=== PATIENT | male | born 1955 | race Caucasian/White ===

== ENCOUNTER 2019-01-29 16:13 | Observation (INO) | payer OTHER, MEDICAID, SELFPAY ==
[2019-01-29 16:19] VITALS: BP 154/79; PULSE 109; RESP 22; TEMP 36.9; O2SAT 99
[2019-01-29] MEDS: SODIUM CHLORIDE 0.9% 1,000 ML 1000 ML IV ×2 (16:36→17:48)
[2019-01-29 16:38] LABS: Add Manual Diff / Slide Review NO; Basophils Absolute Auto 100 /uL (0-100); Basophils Percent Auto 0.6 % (0-2); Eosinophils Absolute Auto 100 /uL (0-450); Eosinophils Percent Auto 0.6 % (2-4); Hematocrit 33.7 % (41-53); Hemoglobin 11.1 g/dL (13.5-17.5); Lymphocytes Absolute Auto 2600 /uL (1100-4500); Mean Corpuscular HGB Conc 32.8 % (30-36); Mean Corpuscular Hemoglobin 27.9 PG (26-34); Monocytes Absolute Auto 700 /uL (0-900); Monocytes Percent Auto 5.8 % (3-14); Neutrophils Absolute Auto 9300 /uL (1500-7000); Platelet Count 478 X10^3/uL (150-400); Red Blood Cell Count 3.97 X10^6/uL (4.5-5.9); White Blood Cell Count 12.8 X10^3/uL (4.5-11.0)
--- NOTE | 2019-01-29 16:39 | DI.RAD.S_ITS ---
PROCEDURE: XR CHEST 1V INDICATIONS: dka TECHNIQUE: One view of the chest was acquired. COMPARISON: None. FINDINGS: Surgical changes and devices: None. Lungs and pleura: Lungs are clear. No pleural effusions or pneumothorax. Mediastinum: Mediastinal contours appear normal. Heart size is normal. Bones and chest wall: No suspicious bony lesions. Overlying soft tissues appear unremarkable. IMPRESSION: Normal chest, source of diabetic ketoacidosis is not seen. Dictated by: Brandon Wesley M.D. on 01/29/2019 at 17:02 Approved by: Brandon Wesley M.D. on 01/29/2019 at 17:02
[2019-01-29 16:47] LABS: Alanine Aminotransferase 10 IU/L (21-72); Albumin 4.2 g/dL (3.5-5.0); Albumin Globulin Ratio 0.9 (1.0-2.8); Alkaline Phosphatase 99 U/L (38-126); Aspartate Aminotransferase 13 IU/L (17-59); BUN Creatinine Ratio 24.3 (6-22); Bilirubin Total 0.5 mg/dL (0.2-1.3); Blood Urea Nitrogen 51 mg/dL (9-20); Calcium 9.1 mg/dL (8.4-10.2); Carbon Dioxide 28 mmol/L (22-32); Chloride 86 mmol/L (98-107); Estimated Glomerular Filt Rate 32.3 mL/min (>60); Globulin 4.7 g/dL (1.7-4.1); HEMOLYSIS < 15 (0-50); Potassium 4.8 mmol/L (3.4-5.1); Sodium 128 mmol/L (137-145); Total Protein 8.9 g/dL (6.3-8.2)
[2019-01-29 16:51] VITALS: BP 166/108; PULSE 97; RESP 22; O2SAT 94
[2019-01-29 16:55] LABS: Glucose 628 mg/dL (80-110)
[2019-01-29 17:00] VITALS: BP 170/103; PULSE 95; RESP 11; O2SAT 99
[2019-01-29 17:00] LABS: Lactate (Lactic Acid) 1.5 mmol/L (0.7-2.1)
[2019-01-29 17:05] LABS: HCO3 VBG 29 mmol/L (23-28); Oxygen Saturation VBG 27 % (70-75); PCO2 VBG 55.1 mmHg (45-50); PO2 VBG 20 mmHg (35-45); Total CO2 VBG 30 mmol/L (24-29); pH VBG 7.32 (7.33-7.43)
[2019-01-29 17:09] LABS: Ketones (Beta-Hydroxybutyrate) 0.31 mmol/L (<0.27)
[2019-01-29 17:24] LABS: Procalcitonin 0.15 ng/mL (<0.5)
[2019-01-29] MEDS: INSULIN REGULAR 100 UNIT/ML 3 ML VIAL 12 UNIT IV (18:00)
[2019-01-29 18:46] VITALS: BP 157/96; PULSE 102; RESP 22; O2SAT 98
--- NOTE | 2019-01-29 18:50 | ED.GENADULT ---
HPI - General Adult General Chief complaint: Diabetic Problem Stated complaint: ? DKA, BS > 600, altered mental status Time Seen by Provider: 01/29/19 16:45 Source: patient Mode of arrival: ambulatory Limitations: no limitations History of Present Illness HPI narrative: Patient states that he has come to the emergency department today because he ?just has not felt good?. Patient states that for about the last year, he has been noticing tingling in his hands and feet. He states that he has been feeling tired and dizzy, and he that ?something isn't right?. Patient states he has a strong family history of diabetes, so he has been concerned that he may be developing diabetes himself. Patient states that he bought himself a glucometer and found his sugar to be high this afternoon. As such, he presented to a clinic in [place], where he happened to be, and was found have a sugar greater than 600. Because the patient lives in [place], he opted to come to our hospital for further evaluation. Patient denies nausea vomiting. He denies fevers or chills. No chest pain, shortness of breath, or cough. No dysuria. Patient states that he urinates about what he thinks he should based on how much water he is drinking. Patient states he gave up drinking alcohol about a year ago, and never goes to the doctor. He states the last time he went to the doctor before today was ?years ago?. Related Data Previous Rx's Medication Instructions Recorded insulin glargine [Lantus Solostar 20 unit SUBCUT BID 30 Days #12 ml 01/30/19 U-100 Insulin] insulin regular human [Humulin R 7 unit SUBCUT TIDWM 30 Days ml 01/30/19 Regular U-100 Insuln] metoprolol tartrate 12.5 mg PO BID 30 Days #30 tab 01/30/19 Allergies Allergy/AdvReac Type Severity Reaction Status Date / Time No Known Drug Allergies Allergy Verified 01/29/19 16:37 Review of Systems Constitutional Denies chills, Denies fever(s), Denies lethargy and Reports weakness Eyes Denies change in vision, Denies eye discharge, Denies irritation and Denies loss of vision ENT Ears, Nose, Mouth, and Throat: Denies change in voice, Denies neck pain and Denies sore throat Cardiovascular Denies chest pain, Denies irregular heart rhythm, Denies lightheadedness, Denies palpitations, Denies dyspnea, Denies dyspnea on exertion and Denies orthopnea Respiratory Denies cough, Denies dyspnea, Denies dyspnea on exertion and Denies wheezing Gastrointestinal Gastrointestinal: Denies abdominal pain, Denies change in bowel habits, Denies diarrhea, Denies nausea and Denies vomiting Genitourinary Denies hematuria, Denies flank pain, Denies urinary incontinence and Denies urinary urgency Musculoskeletal Denies neck pain Integumentary/Breasts Denies pruritus, Denies erythema, Denies rash and Denies wounds Neurologic Denies confusion, Denies loss of vision and Reports weakness Psychiatric Denies anxiety, Denies confusion, Denies depression, Denies homicidal ideation and Denies suicidal ideation Endocrine Denies palpitations Hematologic/Lymphatic Denies easy bruising Allergic/Immunologic Denies wheezing [facility] Medical History (Updated 01/30/19 @ 00:30 by EDILBERTO Corey) Essential hypertension (Acute) Acute dehydration (Acute) Healthy adult (Acute) Diabetes mellitus with hyperglycemia (Acute) Surgical History H/O hernia repair (Acute) Family History Mother Diabetes mellitus Father No problems noted. Social History household members: friend(s) Smoking Status: Current some day smoker alcohol intake: former Family History Mother Diabetes mellitus Father No problems noted. Social History household members: friend(s) Smoking Status: Current some day smoker alcohol intake: former Exam Initial Vital Signs Initial Vital Signs: Vital Signs Temperature 98.5 F 01/29/19 16:19 Pulse Rate 109 H 01/29/19 16:19 Respiratory Rate 22 01/29/19 16:19 Blood Pressure 154/79 H 01/29/19 16:19 Pulse Oximetry 99 01/29/19 16:19 Const General: cooperative, No healthy appearing, No well groomed, No in distress and disheveled Nutritional Appearance: well nourished Orientation: alert, awake, oriented x3 and not confused Other: Patient is thin, and has generally poor skin color, but is alert and talkative. [facility] Head: normocephalic and atraumatic Ears: external ears normal Nose: external nose normal and No nasal discharge Face and sinus: face symmetric and No dry mucous membranes Mouth: oral mucosae normal and moist mucous membranes Teeth and gingiva: dentition normal Eyes General: appearance normal, both eyes and all related structures Eyelids: eyelids normal Conjunctivae: conjunctivae normal Sclera: sclerae normal Pupils: PERRL EOM: EOM intact bilaterally Neck Neck: normal visual inspection, trachea midline, No lymphadenopathy, No midline deformity and No JVD Lymphatic: No lymphedema Chest Chest: normal inspection of the chest Resp Effort & Inspection: normal respiratory effort, able to speak in complete sentences, no respiratory distress and no use of accessory muscles Auscultation: clear to auscultation bilaterally, no rales, no rhonchi and no wheezes Cardio Rate: regular rate Rhythm: regular rhythm Heart Sounds: no click, no gallops, no murmurs and no rubs Pulses: normal peripheral pulses GI Inspection: non-distended Palpation: soft, no hepatosplenomegaly, No guarding, No pulsatile mass and No tender Back/Spine/Pelvis Back: No CVA tenderness Cervical Spine: cervical ROM normal and No pain with cervical ROM Thoracic/Lumbar Spine: thoracic and lumbar spine normal to inspection Skin General: no rashes or lesions noted, No jaundice and No petechiae Neuro General: alert, oriented x3, gait normal and no focal motor deficits Speech: speech normal Extrem General: full ROM, no clubbing, cyanosis or edema, no pedal edema and no calf tenderness Psych Appearance: well kempt Mental Status: mental status grossly normal Attitude: cooperative Thought Content: normal and suicidality Judgment: judgment good Course Course Narrative: Patient was treated with IV fluids and worked up with POC glucose, which was greater than 500, and laboratory studies. Glucose was found to be over 600 on labs, the patient was given IV dose of regular insulin for this. Patient was found to have an anion gap of 14. His VBG showed a pH of 7.32 and a bicarb of 29. I did not feel this patient was in DKA, but given his new onset diabetes, severe hyperglycemia, and lack of any medical care as an outpatient, I felt that he should be admitted to the hospital. I spoke with Dr. Pelaez, who is the on-call hospitalist, and she did accept the patient for admission. On re-evaluation, the patient's repeat blood sugar was found to be 337. He had received back to pack L of 0.9 normal saline, which had improved his heart rate. Orders Ordered: Discontinued Medications Atorvastatin Calcium (Lipitor) 40 mg PO BEDTIME MAGDA Dextrose (D50w) 25 gm IV PRN PRN PRN Reason: Hypoglycemia Sodium Chloride (Normal Saline 0.9%) 1,000 mls @ 1,000 mls/hr IV BOLUS ONE Stop: 01/29/19 17:21 Last Infusion: 01/29/19 17:46 Dose: 0 mls/hr Admin: 01/29/19 16:36 Dose: 1,000 mls/hr Sodium Chloride (Normal Saline 0.9%) 1,000 mls @ 1,000 mls/hr IV BOLUS ONE Stop: 01/29/19 18:11 Last Admin: 01/29/19 17:48 Dose: 1,000 mls/hr Sodium Chloride (Normal Saline 0.45%) 1,000 mls @ 100 mls/hr IV CONT MAGDA Last Admin: 01/30/19 00:25 Dose: 100 mls/hr Potassium Chloride/Sodium Chloride (Ns With Kcl 20 Meq) 1,000 mls @ 250 mls/hr IV CONT MAGDA Last Infusion: 01/30/19 14:15 Dose: 250 mls/hr Admin: 01/30/19 10:16 Dose: 250 mls/hr Insulin Aspart (Novolog Flexpen) 0 unit SUBCUT ACHS MAGDA; Protocol Insulin Aspart (Novolog Flexpen) 0 unit SUBCUT ACHS MAGDA; Protocol Last Admin: 01/30/19 09:17 Dose: Not Given Admin: 01/30/19 00:27 Dose: 1 unit Insulin Glargine (Lantus Solostar (Pen)) 10 unit SUBCUT BID MAGDA Insulin Glargine (Lantus Solostar (Pen)) 10 unit SUBCUT BID MAGDA Last Admin: 01/30/19 08:26 Dose: 10 unit Admin: 01/30/19 00:29 Dose: 10 unit Insulin Glargine (Lantus Solostar (Pen)) 20 unit SUBCUT BID [facility] Insulin Human NPH (Humulin N) 6 unit SUBCUT BIDWM [facility] Insulin Human NPH (Humulin N) 6 unit SUBCUT BIDWM [facility] Insulin Human Regular (Humulin R) 12 unit IV NOW ONE Stop: 01/29/19 17:16 Last Admin: 01/29/19 18:00 Dose: 12 unit Insulin Human Regular (Humulin R) 7 unit SUBCUT TIDWM [facility] Last Admin: 01/30/19 12:18 Dose: 7 unit Admin: 01/30/19 08:25 Dose: 7 unit Metoprolol Tartrate (Lopressor) 12.5 mg PO BID [facility] Last Admin: 01/30/19 08:48 Dose: 12.5 mg Vital Signs - 8 hr 01/29/19 16:19 01/29/19 16:51 01/29/19 17:00 Temperature 98.5 F Pulse Rate 109 H 97 H 95 H Respiratory Rate 22 22 11 L Blood Pressure 154/79 H Blood Pressure [Right Arm] 166/108 H 170/103 H Pulse Oximetry 99 94 99 01/29/19 18:46 Temperature Pulse Rate 102 H Respiratory Rate 22 Blood Pressure Blood Pressure [Right Arm] 157/96 H Pulse Oximetry 98 Medical Decision Making Medical Records Medical records reviewed: Yes I reviewed the patient's medical records. Lab Data Lab results reviewed: Yes I reviewed the patient's lab results. Result diagrams: 01/30/19 05:11 01/30/19 14:43 Lab Results 01/29/19 01/29/19 01/29/19 Range/Units 16:26 16:26 16:26 WBC 12.8 H (4.5-11.0) X10^3/uL RBC 3.97 L (4.5-5.9) X10^6/uL Hgb 11.1 L (13.5-17.5) g/dL Hct 33.7 L (41-53) % MCV 85.0 (80-100) fL MCH 27.9 (26-34) PG MCHC 32.8 (30-36) % RDW 14.0 (11.6-14.8) % Plt Count 478 H (150-400) X10^3/uL Neut % (Auto) 73.0 (50-75) % Lymph % (Auto) 20.0 L (25-40) % [place] % (Auto) 5.8 (3-14) % Eos % (Auto) 0.6 L (2-4) % Baso % (Auto) 0.6 (0-2) % Neut # (Auto) 9300 H (0599-2851) /uL Lymph # (Auto) 2600 (6685-1576) /uL [place] # (Auto) 700 (0-900) /uL Eos # (Auto) 100 (0-450) /uL Baso # (Auto) 100 (0-100) /uL VBG pH (7.33-7.43) VBG pCO2 (45-50) mmHg VBG pO2 (35-45) mmHg VBG HCO3 (23-28) mmol/L VBG Total CO2 (24-29) mmol/L VBG O2 Saturation (70-75) % VBG Base Excess (0-4) mmol/L Sodium 128 L (137-145) mmol/L Potassium 4.8 (3.4-5.1) mmol/L Chloride 86 L (98-107) mmol/L Carbon Dioxide 28 (22-32) mmol/L BUN 51 H (9-20) mg/dL Creatinine 2.10 H (0.66-1.25) mg/dL Estimated GFR 32.3 L (>60) mL/min BUN/Creatinine Ratio 24.3 H (6-22) Glucose 628 H* (80-110) mg/dL Hemoglobin A1c (4.0-6.0) % Lactate (0.7-2.1) mmol/L Calcium 9.1 (8.4-10.2) mg/dL Total Bilirubin 0.5 (0.2-1.3) mg/dL AST 13 L (17-59) IU/L ALT 10 L (21-72) IU/L Alkaline Phosphatase 99 (38-126) U/L Total Protein 8.9 H (6.3-8.2) g/dL Albumin 4.2 (3.5-5.0) g/dL Globulin 4.7 H (1.7-4.1) g/dL Albumin/Globulin Ratio 0.9 L (1.0-2.8) Triglycerides (35-150) mg/dL Cholesterol (140-199) mg/dL LDL Cholesterol, Calc (<100) mg/dL HDL Cholesterol (40-60) mg/dL Procalcitonin 0.15 (<0.5) ng/mL TSH (0.47-4.68) uIU/mL Urine Color Urine Appearance Urine pH (4.5-8.0) Ur Specific [place] (1.000-1.035) Urine Protein (Negative) Urine Glucose (UA) (Negative) g/dL Urine Ketones (NEGATIVE) Urine Occult Blood (Negative) Urine Nitrate (Negative) Urine Bilirubin (NEGATIVE) Urine Urobilinogen (0.2) E.U./dL Ur Leukocyte Esterase (NEGATIVE) Urine RBC (0-5/HPF) Urine WBC (0-5/HPF) Ur Squamous Epith Cells (0-5/HPF) Urine Bacteria (None) Ur Culture Indicated? Ketones (<0.27) mmol/L 01/29/19 01/29/19 01/29/19 Range/Units 16:26 16:26 16:35 WBC (4.5-11.0) X10^3/uL RBC (4.5-5.9) X10^6/uL Hgb (13.5-17.5) g/dL Hct (41-53) % MCV (80-100) fL MCH (26-34) PG MCHC (30-36) % RDW (11.6-14.8) % Plt Count (150-400) X10^3/uL Neut % (Auto) (50-75) % Lymph % (Auto) (25-40) % [place] % (Auto) (3-14) % Eos % (Auto) (2-4) % Baso % (Auto) (0-2) % Neut # (Auto) (8632-0684) /uL Lymph # (Auto) (7343-3810) /uL [place] # (Auto) (0-900) /uL Eos # (Auto) (0-450) /uL Baso # (Auto) (0-100) /uL VBG pH 7.32 L (7.33-7.43) VBG pCO2 55.1 H (45-50) mmHg VBG pO2 20 L (35-45) mmHg VBG HCO3 29 H (23-28) mmol/L VBG Total CO2 30 H (24-29) mmol/L VBG O2 Saturation 27 L (70-75) % VBG Base Excess 3.0 (0-4) mmol/L Sodium (137-145) mmol/L Potassium (3.4-5.1) mmol/L Chloride (98-107) mmol/L Carbon Dioxide (22-32) mmol/L BUN (9-20) mg/dL Creatinine (0.66-1.25) mg/dL Estimated GFR (>60) mL/min BUN/Creatinine Ratio (6-22) Glucose (80-110) mg/dL Hemoglobin A1c (4.0-6.0) % Lactate 1.5 (0.7-2.1) mmol/L Calcium (8.4-10.2) mg/dL Total Bilirubin (0.2-1.3) mg/dL AST (17-59) IU/L ALT (21-72) IU/L Alkaline Phosphatase (38-126) U/L Total Protein (6.3-8.2) g/dL Albumin (3.5-5.0) g/dL Globulin (1.7-4.1) g/dL Albumin/Globulin Ratio (1.0-2.8) Triglycerides (35-150) mg/dL Cholesterol (140-199) mg/dL LDL Cholesterol, Calc (<100) mg/dL HDL Cholesterol (40-60) mg/dL Procalcitonin (<0.5) ng/mL TSH (0.47-4.68) uIU/mL Urine Color Urine Appearance Urine pH (4.5-8.0) Ur Specific [place] (1.000-1.035) Urine Protein (Negative) Urine Glucose (UA) (Negative) g/dL Urine Ketones (NEGATIVE) Urine Occult Blood (Negative) Urine Nitrate (Negative) Urine Bilirubin (NEGATIVE) Urine Urobilinogen (0.2) E.U./dL Ur Leukocyte Esterase (NEGATIVE) Urine RBC (0-5/HPF) Urine WBC (0-5/HPF) Ur Squamous Epith Cells (0-5/HPF) Urine Bacteria (None) Ur Culture Indicated? Ketones 0.31 H (<0.27) mmol/L 01/29/19 01/30/19 01/30/19 Range/Units 23:50 03:52 05:11 WBC 10.7 (4.5-11.0) X10^3/uL RBC 3.49 L (4.5-5.9) X10^6/uL Hgb 10.2 L (13.5-17.5) g/dL Hct 29.3 L (41-53) % MCV 84.1 (80-100) fL MCH 29.3 (26-34) PG MCHC 34.8 (30-36) % RDW 13.7 (11.6-14.8) % Plt Count 411 H (150-400) X10^3/uL Neut % (Auto) 63.2 (50-75) % Lymph % (Auto) 27.6 (25-40) % [place] % (Auto) 5.9 (3-14) % Eos % (Auto) 2.3 (2-4) % Baso % (Auto) 1.0 (0-2) % Neut # (Auto) 6800 (9046-8309) /uL Lymph # (Auto) 3000 (6743-7170) /uL [place] # (Auto) 600 (0-900) /uL Eos # (Auto) 200 (0-450) /uL Baso # (Auto) 100 (0-100) /uL VBG pH (7.33-7.43) VBG pCO2 (45-50) mmHg VBG pO2 (35-45) mmHg VBG HCO3 (23-28) mmol/L VBG Total CO2 (24-29) mmol/L VBG O2 Saturation (70-75) % VBG Base Excess (0-4) mmol/L Sodium (137-145) mmol/L Potassium (3.4-5.1) mmol/L Chloride (98-107) mmol/L Carbon Dioxide (22-32) mmol/L BUN (9-20) mg/dL Creatinine (0.66-1.25) mg/dL Estimated GFR (>60) mL/min BUN/Creatinine Ratio (6-22) Glucose (80-110) mg/dL Hemoglobin A1c > 14.0 H (4.0-6.0) % Lactate (0.7-2.1) mmol/L Calcium (8.4-10.2) mg/dL Total Bilirubin (0.2-1.3) mg/dL AST (17-59) IU/L ALT (21-72) IU/L Alkaline Phosphatase (38-126) U/L Total Protein (6.3-8.2) g/dL Albumin (3.5-5.0) g/dL Globulin (1.7-4.1) g/dL Albumin/Globulin Ratio (1.0-2.8) Triglycerides (35-150) mg/dL Cholesterol (140-199) mg/dL LDL Cholesterol, Calc (<100) mg/dL HDL Cholesterol (40-60) mg/dL Procalcitonin (<0.5) ng/mL TSH (0.47-4.68) uIU/mL Urine Color Yellow Urine Appearance Slightly cloudy Urine pH 5.0 (4.5-8.0) Ur Specific [place] 1.010 (1.000-1.035) Urine Protein Negative (Negative) Urine Glucose (UA) 2+ H (Negative) g/dL Urine Ketones Negative (NEGATIVE) Urine Occult Blood Trace-lysed (Negative) Urine Nitrate Negative (Negative) Urine Bilirubin Negative (NEGATIVE) Urine Urobilinogen 0.2 (0.2) E.U./dL Ur Leukocyte Esterase 2+ H (NEGATIVE) Urine RBC None seen (0-5/HPF) Urine WBC 30-100/hpf H (0-5/HPF) Ur Squamous Epith Cells None seen (0-5/HPF) Urine Bacteria Few (2-10) H (None) Ur Culture Indicated? Specimen cultured Ketones (<0.27) mmol/L 01/30/19 01/30/19 01/30/19 Range/Units 05:11 05:11 05:11 WBC (4.5-11.0) X10^3/uL RBC (4.5-5.9) X10^6/uL Hgb (13.5-17.5) g/dL Hct (41-53) % MCV (80-100) fL MCH (26-34) PG MCHC (30-36) % RDW (11.6-14.8) % Plt Count (150-400) X10^3/uL Neut % (Auto) (50-75) % Lymph % (Auto) (25-40) % [place] % (Auto) (3-14) % Eos % (Auto) (2-4) % Baso % (Auto) (0-2) % Neut # (Auto) (4893-3386) /uL Lymph # (Auto) (1875-5846) /uL [place] # (Auto) (0-900) /uL Eos # (Auto) (0-450) /uL Baso # (Auto) (0-100) /uL VBG pH (7.33-7.43) VBG pCO2 (45-50) mmHg VBG pO2 (35-45) mmHg VBG HCO3 (23-28) mmol/L VBG Total CO2 (24-29) mmol/L VBG O2 Saturation (70-75) % VBG Base Excess (0-4) mmol/L Sodium 134 L (137-145) mmol/L Potassium 4.4 (3.4-5.1) mmol/L Chloride 98 (98-107) mmol/L Carbon Dioxide 27 (22-32) mmol/L BUN 40 H (9-20) mg/dL Creatinine 1.70 H (0.66-1.25) mg/dL Estimated GFR 41.2 L (>60) mL/min BUN/Creatinine Ratio 23.5 H (6-22) Glucose 274 H D (80-110) mg/dL Hemoglobin A1c (4.0-6.0) % Lactate (0.7-2.1) mmol/L Calcium 8.4 (8.4-10.2) mg/dL Total Bilirubin (0.2-1.3) mg/dL AST (17-59) IU/L ALT (21-72) IU/L Alkaline Phosphatase (38-126) U/L Total Protein (6.3-8.2) g/dL Albumin (3.5-5.0) g/dL Globulin (1.7-4.1) g/dL Albumin/Globulin Ratio (1.0-2.8) Triglycerides 99 (35-150) mg/dL Cholesterol 113 L (140-199) mg/dL LDL Cholesterol, Calc 61 (<100) mg/dL HDL Cholesterol 32 L (40-60) mg/dL Procalcitonin (<0.5) ng/mL TSH 1.46 (0.47-4.68) uIU/mL Urine Color Urine Appearance Urine pH (4.5-8.0) Ur Specific [place] (1.000-1.035) Urine Protein (Negative) Urine Glucose (UA) (Negative) g/dL Urine Ketones (NEGATIVE) Urine Occult Blood (Negative) Urine Nitrate (Negative) Urine Bilirubin (NEGATIVE) Urine Urobilinogen (0.2) E.U./dL Ur Leukocyte Esterase (NEGATIVE) Urine RBC (0-5/HPF) Urine WBC (0-5/HPF) Ur Squamous Epith Cells (0-5/HPF) Urine Bacteria (None) Ur Culture Indicated? Ketones (<0.27) mmol/L 01/30/19 Range/Units 14:43 WBC (4.5-11.0) X10^3/uL RBC (4.5-5.9) X10^6/uL Hgb (13.5-17.5) g/dL Hct (41-53) % MCV (80-100) fL MCH (26-34) PG MCHC (30-36) % RDW (11.6-14.8) % Plt Count (150-400) X10^3/uL Neut % (Auto) (50-75) % Lymph % (Auto) (25-40) % [place] % (Auto) (3-14) % Eos % (Auto) (2-4) % Baso % (Auto) (0-2) % Neut # (Auto) (4068-8427) /uL Lymph # (Auto) (6867-2909) /uL [place] # (Auto) (0-900) /uL Eos # (Auto) (0-450) /uL Baso # (Auto) (0-100) /uL VBG pH (7.33-7.43) VBG pCO2 (45-50) mmHg VBG pO2 (35-45) mmHg VBG HCO3 (23-28) mmol/L VBG Total CO2 (24-29) mmol/L VBG O2 Saturation (70-75) % VBG Base Excess (0-4) mmol/L Sodium 137 (137-145) mmol/L Potassium 4.6 (3.4-5.1) mmol/L Chloride 99 (98-107) mmol/L Carbon Dioxide 28 (22-32) mmol/L BUN 38 H (9-20) mg/dL Creatinine 1.80 H (0.66-1.25) mg/dL Estimated GFR 38.6 L (>60) mL/min BUN/Creatinine Ratio 21.1 (6-22) Glucose 156 H D (80-110) mg/dL Hemoglobin A1c (4.0-6.0) % Lactate (0.7-2.1) mmol/L Calcium 8.5 (8.4-10.2) mg/dL Total Bilirubin (0.2-1.3) mg/dL AST (17-59) IU/L ALT (21-72) IU/L Alkaline Phosphatase (38-126) U/L Total Protein (6.3-8.2) g/dL Albumin (3.5-5.0) g/dL Globulin (1.7-4.1) g/dL Albumin/Globulin Ratio (1.0-2.8) Triglycerides (35-150) mg/dL Cholesterol (140-199) mg/dL LDL Cholesterol, Calc (<100) mg/dL HDL Cholesterol (40-60) mg/dL Procalcitonin (<0.5) ng/mL TSH (0.47-4.68) uIU/mL Urine Color Urine Appearance Urine pH (4.5-8.0) Ur Specific [place] (1.000-1.035) Urine Protein (Negative) Urine Glucose (UA) (Negative) g/dL Urine Ketones (NEGATIVE) Urine Occult Blood (Negative) Urine Nitrate (Negative) Urine Bilirubin (NEGATIVE) Urine Urobilinogen (0.2) E.U./dL Ur Leukocyte Esterase (NEGATIVE) Urine RBC (0-5/HPF) Urine WBC (0-5/HPF) Ur Squamous Epith Cells (0-5/HPF) Urine Bacteria (None) Ur Culture Indicated? Ketones (<0.27) mmol/L Point of Care Testing Glucose POC 242 Urine Dip Bedside Urine Glucose Negative Bedside Urine Bilirubin - Negative Bedside Urine Ketone - Negative Urine Specific [place] 1.015 Bedside Urine Occult Blood - Negative Bedside Urine pH 7.0 Bedside Urine Protein - Negative Bedside Urine Urobilinogen +/- 1mg Bedside Urine Nitrite - Negative Bedside Urine Leukocytes + 70 Esterase Point of care testing: Point of Care Testing Glucose POC 242 Urine Dip Bedside Urine Glucose Negative Bedside Urine Bilirubin - Negative Bedside Urine Ketone - Negative Urine Specific [place] 1.015 Bedside Urine Occult Blood - Negative Bedside Urine pH 7.0 Bedside Urine Protein - Negative Bedside Urine Urobilinogen +/- 1mg Bedside Urine Nitrite - Negative Bedside Urine Leukocytes + 70 Esterase Imaging Data Chest x-ray: Radiologist's impression: PROCEDURE: XR CHEST 1V INDICATIONS: dka TECHNIQUE: One view of the chest was acquired. COMPARISON: None. FINDINGS: Surgical changes and devices: None. Lungs and pleura: Lungs are clear. No pleural effusions or pneumothorax. Mediastinum: Mediastinal contours appear normal. Heart size is normal. Bones and chest wall: No suspicious bony lesions. Overlying soft tissues appear unremarkable. IMPRESSION: Normal chest, source of diabetic ketoacidosis is not seen. Dictated by: Brandon Wesley M.D. on 01/29/2019 at 17:02 Approved by: Brandon Wesley M.D. on 01/29/2019 at 17:02 Discharge Plan Departure Patient Disposition: Admitted As Inpatient Clinical Impression: Acute dehydration Diabetes mellitus with hyperglycemia Qualifiers: Diabetes mellitus type: type 2 Diabetes mellitus computer terminal operator insulin use: without computer terminal operator use Qualified Code(s): E11.65 - Type 2 diabetes mellitus with hyperglycemia Discharge Date/Time: 01/29/19 19:25 Interventions: ED Discharge Assessment Last Done: 01/29/19 18:50 Admit Date/Time: 01/29/19 18:48 Admit Provider: Philomena Pelaez
--- NOTE | 2019-01-29 18:54 | ED_ITS ---
HPI - General Adult General Chief complaint: Diabetic Problem Stated complaint: ? DKA, BS > 600, altered mental status Time Seen by Provider: 01/29/19 16:45 Source: patient Mode of arrival: ambulatory Limitations: no limitations History of Present Illness HPI narrative: Patient states that he has come to the emergency department today because he ?just has not felt good?. Patient states that for about the last yea r, he has been noticing tingling in his hands and feet. He states that he has been feeling tired and dizzy, and he that ?something isn't right?. Patient states he has a strong family history of diabetes, so he has been concerned that he may be developing diabetes himself. Patient states that he bought himself a glucometer and found his sugar to be high this afternoon. As such, he presented to a clinic in [place], where he happened to be, and was found have a sugar greater than 600. Because the patient lives in [place], he opted to come to our hospital for further evaluation. Patient denies nausea vomiting. He denies fevers or chills. No chest pain, shortness of breath, or cough. No dysuria. Patient states that he urinates about what he thinks he should based on how much water he is drinking. Patient states he gave up drinking alcohol about a year ago, and never goes to the doctor. He states the last time he went to the doctor before today was ?years ago?. Related Data Previous Rx's Medication Instructions Recorded insulin glargine [Lantus Solostar 20 unit SUBCUT BID 30 Days #12 ml 01/30/19 U-100 Insulin] insulin regular human [Humulin R 7 unit SUBCUT TIDWM 30 Days ml 01/30/19 Regular U-100 Insuln] metoprolol tartrate 12.5 mg PO BID 30 Days #30 tab 01/30/19 Allergies Allergy/AdvReac Type Severity Reaction Status Date / Time No Known Drug Allergies Allergy Verified 01/29/19 16:37 Review of Systems Constitutional Denies chills, Denies fever(s), Denies lethargy and Reports weakness Eyes Denies change in vision, Denies eye discharge, Denies irritation and Denies loss of vision ENT Ears, Nose, Mouth, and Throat: Denies change in voice, Denies neck pain and D enies sore throat Cardiovascular Denies chest pain, Denies irregular heart rhythm, Denies lightheadedness, Denies palpitations, Denies dyspnea, Denies dyspnea on exertion and Denies orthopnea Respiratory Denies cough, Denies dyspnea, Denies dyspnea on exertion and Denies wheezing Gastrointestinal Gastrointestinal: Denies abdominal pain, Denies change in bowel habits, Denies diarrhea, Denies nausea and Denies vomiting Genitourinary Denies hematuria, Denies flank pain, Denies urinary incontinence and Denies urinary urgency Musculoskeletal Denies neck pain Integumentary/Breasts Denies pruritus, Denies erythema, Denies rash and Denies wounds Neurologic Denies confusion, Denies loss of vision and Reports weakness Psychiatric Denies anxiety, Denies confusion, Denies depression, Denies homicidal ideation and Denies suicidal ideation Endocrine Denies palpitations Hematologic/Lymphatic Denies easy bruising Allergic/Immunologic Denies wheezing [facility] Medical History (Updated 01/30/19 @ 00:30 by EDILBERTO Corey) Essential hypertension (Acute) Acute dehydration (Acute) Healthy adult (Acute) Diabetes mellitus with hyperglycemia (Acute) Surgical History H/O hernia repair (Acute) Family History Mother Diabetes mellitus Father No problems noted. Social History household members: friend(s) Smoking Status: Current some day smoker alcohol intake: former Family History Mother Diabetes mellitus Father No problems noted. Social History household members: friend(s) Smoking Status: Current some day smoker alcohol intake: former Exam Initial Vital Signs Initial Vital Signs: Vital Signs Temperature 98.5 F 01/29/19 16:19 Pulse Rate 109 H 01/29/19 16:19 Respiratory Rate 22 01/29/19 16:19 Blood Pressure 154/79 H 01/29/19 16:19 Pulse Oximetry 99 01/29/19 16:19 Const General: cooperative, No healthy appearing, No well groomed, No in distress and disheveled Nutritional Appearance: well nourished Orientation: alert, awake, oriented x3 and not confused Other: Patient is thin, and has generally poor skin color, but is alert and talkative. [facility] Head: normocephalic and atraumatic Ears: external ears normal Nose: external nose normal and No nasal discharge Face and sinus: face symmetric and No dry mucous membranes Mouth: oral mucosae normal and moist mucous membranes Teeth and gingiva: dentition normal Eyes General: appearance normal, both eyes and all related structures Eyelids: eyelids normal Conjunctivae: conjunctivae normal Sclera: sclerae normal Pupils: PERRL EOM: EOM intact bilaterally Neck Neck: normal visual inspection, trachea midline, No lymphadenopathy, No midline deformity and No JVD Lymphatic: No lymphedema Chest Chest: normal inspection of the chest Resp Effort & Inspection: normal respiratory effort, able to speak in complete sentences, no respiratory distress and no use of accessory muscles Auscultation: clear to auscultation bilaterally, no rales, no rhonchi and no wheezes Cardio Rate: regular rate Rhythm: regular rhythm Heart Sounds: no click, no gallops, no murmurs and no rubs Pulses: normal peripheral pulses GI Inspection: non-distended Palpation: soft, no hepatosplenomegaly, No guarding, No pulsatile mass and No tender Back/Spine/Pelvis Back: No CVA tenderness Cervical Spine: cervical ROM normal and No pain with cervical ROM Thoracic/Lumbar Spine: thoracic and lumbar spine normal to inspection Skin General: no rashes or lesions noted, No jaundice and No petechiae Neuro General: alert, oriented x3, gait normal and no focal motor deficits Speech: speech normal Extrem General: full ROM, no clubbing, cyanosis or edema, no pedal edema and no calf tenderness Psych Appearance: well kempt Mental Status: mental status grossly normal Attitude: cooperative Thought Content: normal and suicidality Judgment: judgment good Course Course Narrative: Patient was treated with IV fluids and worked up with POC glucose, which was greater than 500, and laboratory studies. Glucose was found to be over 600 on labs, the patient was given IV dose of regular insulin for this. Patient was found to have an anion gap of 14. His VBG showed a pH of 7.32 and a bicarb of 29. I did not feel this patient was in DKA, but given his new onset diabetes, severe hyperglycemia, and lack of any medical care as an outpatient, I felt that he should be admitted to the hospital. I spoke with Dr. Pelaez, who is the on-call hospitalist, and she did accept the patient for a dmission. On re-evaluation, the patient's repeat blood sugar was found to be 337. He had received back to pack L of 0.9 normal saline, which had improved his heart rate. Orders Ordered: Discontinued Medications Atorvastatin Calcium (Lipitor) 40 mg PO BEDTIME MAGDA Dextrose (D50w) 25 gm IV PRN PRN PRN Reason: Hypoglycemia Sodium Chloride (Normal Saline 0.9%) 1,000 mls @ 1,000 mls/hr IV BOLUS ONE Stop: 01/29/19 17:21 Last Infusion: 01/29/19 17:46 Dose: 0 mls/hr Admin: 01/29/19 16:36 Dose: 1,000 mls/hr Sodium Chloride (Normal Saline 0.9%) 1,000 mls @ 1,000 mls/hr IV BOLUS ONE Stop: 01/29/19 18:11 Last Admin: 01/29/19 17:48 Dose: 1,000 mls/hr Sodium Chloride (Normal Saline 0.45%) 1,000 mls @ 100 mls/hr IV CONT MAGDA Last Admin: 01/30/19 00:25 Dose: 100 mls/hr Potassium Chloride/Sodium Chloride (Ns With Kcl 20 Meq) 1,000 mls @ 250 mls/hr IV CONT MAGDA Last Infusion: 01/30/19 14:15 Dose: 250 mls/hr Admin: 01/30/19 10:16 Dose: 250 mls/hr Insulin Aspart (Novolog Flexpen) 0 unit SUBCUT ACHS MAGDA; Protocol Insulin Aspart (Novolog Flexpen) 0 unit SUBCUT ACHS MAGDA; Protocol Last Admin: 01/30/19 09:17 Dose: Not Given Admin: 01/30/19 00:27 Dose: 1 unit Insulin Glargine (Lantus Solostar (Pen)) 10 unit SUBCUT BID MAGDA Insulin Glargine (Lantus Solostar (Pen)) 10 unit SUBCUT BID MAGDA Last Admin: 01/30/19 08:26 Dose: 10 unit Admin: 01/30/19 00:29 Dose: 10 unit Insulin Glargine (Lantus Solostar (Pen)) 20 unit SUBCUT BID [facility] Insulin Human NPH (Humulin N) 6 unit SUBCUT BIDWM [facility] Insulin Human NPH (Humulin N) 6 unit SUBCUT BIDWM [facility] Insulin Human Regular (Humulin R) 12 unit IV NOW ONE Stop: 01/29/19 17:16 Last Admin: 01/29/19 18:00 Dose: 12 unit Insulin Human Regular (Humulin R) 7 unit SUBCUT TIDWM [facility] Last Admin: 01/30/19 12:18 Dose: 7 unit Admin: 01/30/19 08:25 Dose: 7 unit Metoprolol Tartrate (Lopressor) 12.5 mg PO BID [facility] Last Admin: 01/30/19 08:48 Dose: 12.5 mg Vital Signs - 8 hr 01/29/19 16:19 01/29/19 16:51 01/29/19 17:00 Temperature 98.5 F Pulse Rate 109 H 97 H 95 H Respiratory Rate 22 22 11 L Blood Pressure 154/79 H Blood Pressure [Right Arm] 166/108 H 170/103 H Pulse Oximetry 99 94 99 01/29/19 18:46 Temperature Pulse Rate 102 H Respiratory Rate 22 Blood Pressure Blood Pressure [Right Arm] 157/96 H Pulse Oximetry 98 Medical Decision Making Medical Records Medical records reviewed: Yes I reviewed the patient's medical records. Lab Data Lab results reviewed: Yes I reviewed the patient's lab results. Result diagrams: 01/30/19 05:11 01/30/19 14:43 Lab Results 01/29/19 01/29/19 01/29/19 Range/Units 16:26 16:26 16:26 WBC 12.8 H (4.5-11.0) X10^3/uL RBC 3.97 L (4.5-5.9) X10^6/uL Hgb 11.1 L (13.5-17.5) g/dL Hct 33.7 L (41-53) % MCV 85.0 (80-100) fL MCH 27.9 (26-34) PG MCHC 32.8 (30-36) % RDW 14.0 (11.6-14.8) % Plt Count 478 H (150-400) X10^3/uL Neut % (Auto) 73.0 (50-75) % Lymph % (Auto) 20.0 L (25-40) % [place] % (Auto) 5.8 (3-14) % Eos % (Auto) 0.6 L (2-4) % Baso % (Auto) 0.6 (0-2) % Neut # (Auto) 9300 H (5011-7167) /uL Lymph # (Auto) 2600 (3477-2311) /uL [place] # (Auto) 700 (0-900) /uL Eos # (Auto) 100 (0-450) /uL Baso # (Auto) 100 (0-100) /uL VBG pH (7.33-7.43) VBG pCO2 (45-50) mmHg VBG pO2 (35-45) mmHg VBG HCO3 (23-28) mmol/L VBG Total CO2 (24-29) mmol/L VBG O2 Saturation (70-75) % VBG Base Excess (0-4) mmol/L Sodium 128 L (137-145) mmol/L Potassium 4.8 (3.4-5.1) mmol/L Chloride 86 L (98-107) mmol/L Carbon Dioxide 28 (22-32) mmol/L BUN 51 H (9-20) mg/dL Creatinine 2.10 H (0.66-1.25) mg/dL Estimated GFR 32.3 L (>60) mL/min BUN/Creatinine Ratio 24.3 H (6-22) Glucose 628 H* (80-110) mg/dL Hemoglobin A1c (4.0-6.0) % Lactate (0.7-2.1) mmol/L Calcium 9.1 (8.4-10.2) mg/dL Total Bilirubin 0.5 (0.2-1.3) mg/dL AST 13 L (17-59) IU/L ALT 10 L (21-72) IU/L Alkaline Phosphatase 99 (38-126) U/L Total Protein 8.9 H (6.3-8.2) g/dL Albumin 4.2 (3.5-5.0) g/dL Globulin 4.7 H (1.7-4.1) g/dL Albumin/Globulin Ratio 0.9 L (1.0-2.8) Triglycerides (35-150) mg/dL Cholesterol (140-199) mg/dL LDL Cholesterol, Calc (<100) mg/dL HDL Cholesterol (40-60) mg/dL Procalcitonin 0.15 (<0.5) ng/mL TSH (0.47-4.68) uIU/mL Urine Color Urine Appearance Urine pH (4.5-8.0) Ur Specific Dalton (1.000-1.035) Urine Protein (Negative) Urine Glucose (UA) (Negative) g/dL Urine Ketones (NEGATIVE) Urine Occult Blood (Negative) Urine Nitrate (Negative) Urine Bilirubin (NEGATIVE) Urine Urobilinogen (0.2) E.U./dL Ur Leukocyte Esterase (NEGATIVE) Urine RBC (0-5/HPF) Urine WBC (0-5/HPF) Ur Squamous Epith Cells (0-5/HPF) Urine Bacteria (None) Ur Culture Indicated? Ketones (<0.27) mmol/L 01/29/19 01/29/19 01/29/19 Range/Units 16:26 16:26 16:35 WBC (4.5-11.0) X10^3/uL RBC (4.5-5.9) X10^6/uL Hgb (13.5-17.5) g/dL Hct (41-53) % MCV (80-100) fL MCH (26-34) PG MCHC (30-36) % RDW (11.6-14.8) % Plt Count (150-400) X10^3/uL Neut % (Auto) (50-75) % Lymph % (Auto) (25-40) % [place] % (Auto) (3-14) % Eos % (Auto) (2-4) % Baso % (Auto) (0-2) % Neut # (Auto) (8946-8854) /uL Lymph # (Auto) (8532-3904) /uL [place] # (Auto) (0-900) /uL Eos # (Auto) (0-450) /uL Baso # (Auto) (0-100) /uL VBG pH 7.32 L (7.33-7.43) VBG pCO2 55.1 H (45-50) mmHg VBG pO2 20 L (35-45) mmHg VBG HCO3 29 H (23-28) mmol/L VBG Total CO2 30 H (24-29) mmol/L VBG O2 Saturation 27 L (70-75) % VBG Base Excess 3.0 (0-4) mmol/L Sodium (137-145) mmol/L Potassium (3.4-5.1) mmol/L Chloride (98-107) mmol/L Carbon Dioxide (22-32) mmol/L BUN (9-20) mg/dL Creatinine (0.66-1.25) mg/dL Estimated GFR (>60) mL/min BUN/Creatinine Ratio (6-22) Glucose (80-110) mg/dL Hemoglobin A1c (4.0-6.0) % Lactate 1.5 (0.7-2.1) mmol/L Calcium (8.4-10.2) mg/dL Total Bilirubin (0.2-1.3) mg/dL AST (17-59) IU/L ALT (21-72) IU/L Alkaline Phosphatase (38-126) U/L Total Protein (6.3-8.2) g/dL Albumin (3.5-5.0) g/dL Globulin (1.7-4.1) g/dL Albumin/Globulin Ratio (1.0-2.8) Triglycerides (35-150) mg/dL Cholesterol (140-199) mg/dL LDL Cholesterol, Calc (<100) mg/dL HDL Cholesterol (40-60) mg/dL Procalcitonin (<0.5) ng/mL TSH (0.47-4.68) uIU/mL Urine Color Urine Appearance Urine pH (4.5-8.0) Ur Specific Dalton (1.000-1.035) Urine Protein (Negative) Urine Glucose (UA) (Negative) g/dL Urine Ketones (NEGATIVE) Urine Occult Blood (Negative) Urine Nitrate (Negative) Urine Bilirubin (NEGATIVE) Urine Urobilinogen (0.2) E.U./dL Ur Leukocyte Esterase (NEGATIVE) Urine RBC (0-5/HPF) Urine WBC (0-5/HPF) Ur Squamous Epith Cells (0-5/HPF) Urine Bacteria (None) Ur Culture Indicated? Ketones 0.31 H (<0.27) mmol/L 01/29/19 01/30/19 01/30/19 Range/Units 23:50 03:52 05:11 WBC 10.7 (4.5-11.0) X10^3/uL RBC 3.49 L (4.5-5.9) X10^6/uL Hgb 10.2 L (13.5-17.5) g/dL Hct 29.3 L (41-53) % MCV 84.1 (80-100) fL MCH 29.3 (26-34) PG MCHC 34.8 (30-36) % RDW 13.7 (11.6-14.8) % Plt Count 411 H (150-400) X10^3/uL Neut % (Auto) 63.2 (50-75) % Lymph % (Auto) 27.6 (25-40) % [place] % (Auto) 5.9 (3-14) % Eos % (Auto) 2.3 (2-4) % Baso % (Auto) 1.0 (0-2) % Neut # (Auto) 6800 (0514-1522) /uL Lymph # (Auto) 3000 (5570-8444) /uL [place] # (Auto) 600 (0-900) /uL Eos # (Auto) 200 (0-450) /uL Baso # (Auto) 100 (0-100) /uL VBG pH (7.33-7.43) VBG pCO2 (45-50) mmHg VBG pO2 (35-45) mmHg VBG HCO3 (23-28) mmol/L VBG Total CO2 (24-29) mmol/L VBG O2 Saturation (70-75) % VBG Base Excess (0-4) mmol/L Sodium (137-145) mmol/L Potassium (3.4-5.1) mmol/L Chloride (98-107) mmol/L Carbon Dioxide (22-32) mmol/L BUN (9-20) mg/dL Creatinine (0.66-1.25) mg/dL Estimated GFR (>60) mL/min BUN/Creatinine Ratio (6-22) Glucose (80-110) mg/dL Hemoglobin A1c > 14.0 H (4.0-6.0) % Lactate (0.7-2.1) mmol/L Calcium (8.4-10.2) mg/dL Total Bilirubin (0.2-1.3) mg/dL AST (17-59) IU/L ALT (21-72) IU/L Alkaline Phosphatase (38-126) U/L Total Protein (6.3-8.2) g/dL Albumin (3.5-5.0) g/dL Globulin (1.7-4.1) g/dL Albumin/Globulin Ratio (1.0-2.8) Triglycerides (35-150) mg/dL Cholesterol (140-199) mg/dL LDL Cholesterol, Calc (<100) mg/dL HDL Cholesterol (40-60) mg/dL Procalcitonin (<0.5) ng/mL TSH (0.47-4.68) uIU/mL Urine Color Yellow Urine Appearance Slightly cloudy Urine pH 5.0 (4.5-8.0) Ur Specific Dalton 1.010 (1.000-1.035) Urine Protein Negative (Negative) Urine Glucose (UA) 2+ H (Negative) g/dL Urine Ketones Negative (NEGATIVE) Urine Occult Blood Trace-lysed (Negative) Urine Nitrate Negative (Negative) Urine Bilirubin Negative (NEGATIVE) Urine Urobilinogen 0.2 (0.2) E.U./dL Ur Leukocyte Esterase 2+ H (NEGATIVE) Urine RBC None seen (0-5/HPF) Urine WBC 30-100/hpf H (0-5/HPF) Ur Squamous Epith Cells None seen (0-5/HPF) Urine Bacteria Few (2-10) H (None) Ur Culture Indicated? Specimen cultured Ketones (<0.27) mmol/L 01/30/19 01/30/19 01/30/19 Range/Units 05:11 05:11 05:11 WBC (4.5-11.0) X10^3/uL RBC (4.5-5.9) X10^6/uL Hgb (13.5-17.5) g/dL Hct (41-53) % MCV (80-100) fL MCH (26-34) PG MCHC (30-36) % RDW (11.6-14.8) % Plt Count (150-400) X10^3/uL Neut % (Auto) (50-75) % Lymph % (Auto) (25-40) % [place] % (Auto) (3-14) % Eos % (Auto) (2-4) % Baso % (Auto) (0-2) % Neut # (Auto) (1911-2802) /uL Lymph # (Auto) (8898-2197) /uL [place] # (Auto) (0-900) /uL Eos # (Auto) (0-450) /uL Baso # (Auto) (0-100) /uL VBG pH (7.33-7.43) VBG pCO2 (45-50) mmHg VBG pO2 (35-45) mmHg VBG HCO3 (23-28) mmol/L VBG Total CO2 (24-29) mmol/L VBG O2 Saturation (70-75) % VBG Base Excess (0-4) mmol/L Sodium 134 L (137-145) mmol/L Potassium 4.4 (3.4-5.1) mmol/L Chloride 98 (98-107) mmol/L Carbon Dioxide 27 (22-32) mmol/L BUN 40 H (9-20) mg/dL Creatinine 1.70 H (0.66-1.25) mg/dL Estimated GFR 41.2 L (>60) mL/min BUN/Creatinine Ratio 23.5 H (6-22) Glucose 274 H D (80-110) mg/dL Hemoglobin A1c (4.0-6.0) % Lactate (0.7-2.1) mmol/L Calcium 8.4 (8.4-10.2) mg/dL Total Bilirubin (0.2-1.3) mg/dL AST (17-59) IU/L ALT (21-72) IU/L Alkaline Phosphatase (38-126) U/L Total Protein (6.3-8.2) g/dL Albumin (3.5-5.0) g/dL Globulin (1.7-4.1) g/dL Albumin/Globulin Ratio (1.0-2.8) Triglycerides 99 (35-150) mg/dL Cholesterol 113 L (140-199) mg/dL LDL Cholesterol, Calc 61 (<100) mg/dL HDL Cholesterol 32 L (40-60) mg/dL Procalcitonin (<0.5) ng/mL TSH 1.46 (0.47-4.68) uIU/mL Urine Color Urine Appearance Urine pH (4.5-8.0) Ur Specific Dalton (1.000-1.035) Urine Protein (Negative) Urine Glucose (UA) (Negative) g/dL Urine Ketones (NEGATIVE) Urine Occult Blood (Negative) Urine Nitrate (Negative) Urine Bilirubin (NEGATIVE) Urine Urobilinogen (0.2) E.U./dL Ur Leukocyte Esterase (NEGATIVE) Urine RBC (0-5/HPF) Urine WBC (0-5/HPF) Ur Squamous Epith Cells (0-5/HPF) Urine Bacteria (None) Ur Culture Indicated? Ketones (<0.27) mmol/L 01/30/19 Range/Units 14:43 WBC (4.5-11.0) X10^3/uL RBC (4.5-5.9) X10^6/uL Hgb (13.5-17.5) g/dL Hct (41-53) % MCV (80-100) fL MCH (26-34) PG MCHC (30-36) % RDW (11.6-14.8) % Plt Count (150-400) X10^3/uL Neut % (Auto) (50-75) % Lymph % (Auto) (25-40) % [place] % (Auto) (3-14) % Eos % (Auto) (2-4) % Baso % (Auto) (0-2) % Neut # (Auto) (0399-1766) /uL Lymph # (Auto) (4447-5233) /uL [place] # (Auto) (0-900) /uL Eos # (Auto) (0-450) /uL Baso # (Auto) (0-100) /uL VBG pH (7.33-7.43) VBG pCO2 (45-50) mmHg VBG pO2 (35-45) mmHg VBG HCO3 (23-28) mmol/L VBG Total CO2 (24-29) mmol/L VBG O2 Saturation (70-75) % VBG Base Excess (0-4) mmol/L Sodium 137 (137-145) mmol/L Potassium 4.6 (3.4-5.1) mmol/L Chloride 99 (98-107) mmol/L Carbon Dioxide 28 (22-32) mmol/L BUN 38 H (9-20) mg/dL Creatinine 1.80 H (0.66-1.25) mg/dL Estimated GFR 38.6 L (>60) mL/min BUN/Creatinine Ratio 21.1 (6-22) Glucose 156 H D (80-110) mg/dL Hemoglobin A1c (4.0-6.0) % Lactate (0.7-2.1) mmol/L Calcium 8.5 (8.4-10.2) mg/dL Total Bilirubin (0.2-1.3) mg/dL AST (17-59) IU/L ALT (21-72) IU/L Alkaline Phosphatase (38-126) U/L Total Protein (6.3-8.2) g/dL Albumin (3.5-5.0) g/dL Globulin (1.7-4.1) g/dL Albumin/Globulin Ratio (1.0-2.8) Triglycerides (35-150) mg/dL Cholesterol (140-199) mg/dL LDL Cholesterol, Calc (<100) mg/dL HDL Cholesterol (40-60) mg/dL Procalcitonin (<0.5) ng/mL TSH (0.47-4.68) uIU/mL Urine Color Urine Appearance Urine pH (4.5-8.0) Ur Specific [place] (1.000-1.035) Urine Protein (Negative) Urine Glucose (UA) (Negative) g/dL Urine Ketones (NEGATIVE) Urine Occult Blood (Negative) Urine Nitrate (Negative) Urine Bilirubin (NEGATIVE) Urine Urobilinogen (0.2) E.U./dL Ur Leukocyte Esterase (NEGATIVE) Urine RBC (0-5/HPF) Urine WBC (0-5/HPF) Ur Squamous Epith Cells (0-5/HPF) Urine Bacteria (None) Ur Culture Indicated? Ketones (<0.27) mmol/L Point of Care Testing Glucose POC 242 Urine Dip Bedside Urine Glucose Negative Bedside Urine Bilirubin - Negative Bedside Urine Ketone - Negative Urine Specific Dalton 1.015 Bedside Urine Occult Blood - Negative Bedside Urine pH 7.0 Bedside Urine Protein - Negative Bedside Urine Urobilinogen +/- 1mg Bedside Urine Nitrite - Negative Bedside Urine Leukocytes + 70 Esterase Point of care testing: Point of Care Testing Glucose POC 242 Urine Dip Bedside Urine Glucose Negative Bedside Urine Bilirubin - Negative Bedside Urine Ketone - Negative Urine Specific Dalton 1.015 Bedside Urine Occult Blood - Negative Bedside Urine pH 7.0 Bedside Urine Protein - Negative Bedside Urine Urobilinogen +/- 1mg Bedside Urine Nitrite - Negative Bedside Urine Leukocytes + 70 Esterase Imaging Data Chest x-ray: Radiologist's impression: PROCEDURE: XR CHEST 1V INDICATIONS: dka TECHNIQUE: One view of the chest was acquired. COMPARISON: None. FINDINGS: Surgical changes and devices: None. Lungs and pleura: Lungs are clear. No pleural effusions or pneumothorax. Mediastinum: Mediastinal contours appear normal. Heart size is normal. Bones and chest wall: No suspicious bony lesions. Overlying soft tissues appea r unremarkable. IMPRESSION: Normal chest, source of diabetic ketoacidosis is not seen. Dictated by: Brandon Wesley M.D. on 01/29/2019 at 17:02 Approved by: Brandon Wesley M.D. on 01/29/2019 at 17:02 Discharge Plan Departure Patient Disposition: Admitted As Inpatient Clinical Impression: Acute dehydration Diabetes mellitus with hyperglycemia Qualifiers: Diabetes mellitus type: type 2 Diabetes mellitus longterm insulin use: without longterm use Qualified Code(s): E11.65 - Type 2 diabetes mellitus with hyperglycemia Discharge Date/Time: 01/29/19 19:25 Interventions: ED Discharge Assessment Last Done: 01/29/19 18:50 Admit Date/Time: 01/29/19 18:48 Admit Provider: Philomena Pelaez
[2019-01-29 19:21] VITALS: BMI 24.0
[2019-01-29 19:35] VITALS: BP 144/78; PULSE 102; RESP 18; TEMP 36.6; O2SAT 98
--- NOTE | 2019-01-29 21:10 | PC.NURSE ---
Addendum entered by Cecilia Schwab R.N. 01/29/19 22:19: pt reports using ocassional libertarian drugs. pt used cocaine last week. Original Note: pt arrived at 1930, A&OX3. 98%RA. denied pain. several wound to his bilat barrett and L.hand. covered wounds with allyvn dressing. oriented pt to room. cms+. call light in reach. bed alarm active. pt has harris money in his front pocket, pt refused to put it in safe.
[2019-01-30] VITALS: O2SAT 98
[2019-01-30 00:05] VITALS: BP 127/83; PULSE 94; RESP 18; TEMP 37.3; O2SAT 98
--- NOTE | 2019-01-30 00:16 | P.HP_ITS ---
History of Present Illness Date Patient Seen: 01/29/19 Time Patient Seen: 19:45 Chief complaint: ? DKA, BS > 600, altered mental status Narrative: Silvino Moe is a 63-year-old male who is not normally followed by preventative healthcare and presented with elevated blood sugars. He states he has lost weight, strength, and has numbing and tingling in both of his feet. Apparently he went and bought his own glucometer and checked his blood sugar and it registered too high to measure. So he presented to the emergency department for further evaluation prior to going home to Sunday. The patient states he quit drinking beer about a year ago, used to drink a case of beer a day and is now down to and occasional beer or 2. Patient History Medical History (Updated 01/30/19 @ 00:30 by EDILBERTO Corey) Essential hypertension (Acute) Acute dehydration (Acute) Healthy adult (Acute) Diabetes mellitus with hyperglycemia (Acute) Surgical History H/O hernia repair (Acute) Family History Mother Diabetes mellitus Father No problems noted. Social History household members: friend(s) Smoking Status: Current some day smoker alcohol intake: former Family & Social History Family History Mother Diabetes mellitus Father No problems noted. Social History: household members friend(s) Prior Living Arrangements House Safety & Behavioral: Feels Safe in Current Yes Environment Been Physically Hurt or No Threatened By a Person Suicidal Ideation Description None Suicide Plan Description No Plan Tobacco & Substance use: Tobacco type cannabis/marijuana Smoking Status Current some day smoker alcohol intake former Substance Use Type marijuana,crack/cocaine Meds Home Medications Medication Instructions Recorded Confirmed Type No Known Home Medications 01/29/19 01/29/19 History Allergies Allergy/AdvReac Type Severity Reaction Status Date / Time No Known Drug Allergies Allergy Verified 01/29/19 16:37 Review of Systems Review of Systems Patient denies fever sweats or chills, denies difficulty swallowing, denies changes in appetite, denies nausea or vomiting, does urinate frequently and at night is sometimes incontinent, denies diarrhea or constipation, does endorse having numbing and tingling of his lower extremities, denies depression. Exam Vital Signs (past 8 hours): - 01/29/19 16:19 01/29/19 16:51 01/29/19 17:00 Temperature 98.5 F Pulse Rate 109 H 97 H 95 H Respiratory Rate 22 22 11 L Blood Pressure 154/79 H Blood Pressure [Right Arm] 166/108 H 170/103 H Pulse Oximetry 99 94 99 01/29/19 18:46 01/29/19 19:35 Temperature 97.8 F Pulse Rate 102 H 102 H Respiratory Rate 22 18 Blood Pressure 144/78 H Blood Pressure [Right Arm] 157/96 H Pulse Oximetry 98 98 Oxygen Delivery Method Room Air Narrative Exam Narrative: General: Alert oriented somewhat disheveled appearing 63-year-old male appears older than stated age HEENT: Head is normocephalic atraumatic, thinning hair, conjunctivae is clear sclera nonicteric, oral and nasal mucosa appear be somewhat dry Respirations: Lung sounds are clear to auscultation bilaterally no wheezes or rhonchi CV: Regular rate and rhythm no murmur rubs Abdomen: Soft and nontender with normoactive bowel sounds, no hepatosplenomegaly Skin: Patient does have a number of small non indurated ulcers on his feet and lower legs Neuro: Alert and oriented x4 with no focal deficits Psych: Normal mood and affect Objective Labs Result Diagrams: 01/29/19 16:26 01/29/19 16:26 Labs: Laboratory Results - last 24 hr 01/29/19 01/29/19 01/29/19 16:26 16:26 16:26 WBC 12.8 H RBC 3.97 L Hgb 11.1 L Hct 33.7 L MCV 85.0 MCH 27.9 MCHC 32.8 RDW 14.0 Plt Count 478 H Neut % (Auto) 73.0 Lymph % (Auto) 20.0 L [place] % (Auto) 5.8 Eos % (Auto) 0.6 L Baso % (Auto) 0.6 Neut # (Auto) 9300 H Lymph # (Auto) 2600 [place] # (Auto) 700 Eos # (Auto) 100 Baso # (Auto) 100 VBG pH VBG pCO2 VBG pO2 VBG HCO3 VBG Total CO2 VBG O2 Saturation VBG Base Excess Sodium 128 L Potassium 4.8 Chloride 86 L Carbon Dioxide 28 BUN 51 H Creatinine 2.10 H Estimated GFR 32.3 L BUN/Creatinine Ratio 24.3 H Glucose 628 H* Lactate Calcium 9.1 Total Bilirubin 0.5 AST 13 L ALT 10 L Alkaline Phosphatase 99 Total Protein 8.9 H Albumin 4.2 Globulin 4.7 H Albumin/Globulin Ratio 0.9 L Procalcitonin 0.15 Ketones 01/29/19 01/29/19 01/29/19 16:26 16:26 16:35 WBC RBC Hgb Hct MCV MCH MCHC RDW Plt Count Neut % (Auto) Lymph % (Auto) [place] % (Auto) Eos % (Auto) Baso % (Auto) Neut # (Auto) Lymph # (Auto) [place] # (Auto) Eos # (Auto) Baso # (Auto) VBG pH 7.32 L VBG pCO2 55.1 H VBG pO2 20 L VBG HCO3 29 H VBG Total CO2 30 H VBG O2 Saturation 27 L VBG Base Excess 3.0 Sodium Potassium Chloride Carbon Dioxide BUN Creatinine Estimated GFR BUN/Creatinine Ratio Glucose Lactate 1.5 Calcium Total Bilirubin AST ALT Alkaline Phosphatase Total Protein Albumin Globulin Albumin/Globulin Ratio Procalcitonin Ketones 0.31 H Assessment & Plan (1) Essential hypertension: Current visit: Yes Status: Acute Assessment & Plan narrative: Silvino Moe will be admitted to manage and treat severe hyperglycemia with a new onset diagnosis of diabetes type 2. 1. Diabetes type 2, new diagnosis, presumed to be chronic and present on admission - He will have an A1C added on his admission labs - Basal insulin of 10 units bid - Meal time insulin of 7 units - Low dose correctional scale insulin achs - Carb control diet - Diabetic education in the am - He will need to get set with a PCP, likely near his home in Sunday. 2. Acute kidney injury, presumed to be new, acute and present on admission - Started IVF, 0.45 ns at 100 ml/hour - Recheck bun/creatinine in the am - KAMRON-1/ARB contraindicated at this time. 3. Elevated blood pressure without a diagnosis of hypertension, presumed to be essential hypertension present on admission. - Start metoprolol IR 12.5 mg bid 4. Suspected hyperlipidemia - Fasting lipid panel in the am - TSH w/reflex in the am - Start atorvastatin 40 mg po qhs 5. Nocturnal urinary incontinence, presumed acute and present on admission - U/A w/culture ordered and is pending. - Treat for a UTI if u/a positive. Patient is admitted as inpatient as his stay is anticipated to exceed 2 midnights. 0.45 NS at 100 ml/hr, carb controlled diet, CMP in the am VTE Prophylaxis: Bilateral SCDs Disposition: Likely discharge to home Code status: Full Code Admission time: 65 Meds reconciled: No, not on any medications. Scores GCS [place] coma scale eye opening: Spontaneous [place] coma scale verbal response: Orientated [place] coma scale motor response: Obey commands Waldo coma scale total score: 15 Quality VTE Deep Vein Thrombosis/Pulmonary Embolism Present on Admission: No
[2019-01-30] MEDS: SODIUM CHLORIDE 0.45% 1,000 ML 100 ML IV (00:25)
[2019-01-30] MEDS: INSULIN ASPART 100 UNIT/ML INSULN PEN SUBCUT (00:27)
[2019-01-30] MEDS: INSULIN GLARGINE 100 UNIT/ML 3ML PEN 10 UNIT SUBCUT ×2 (00:29→08:26)
--- NOTE | 2019-01-30 02:34 | PC.NURSE ---
Assumed care of pt at 2300 on 01/29/19. Pt sleeping during bedside hand-off. Awakens at approx 0000. BG 230. Per Hospitalist Delmi Herbert give Lantus and HS Novolg coverage at 0000, D/C tele and have A1C lab be added on to prior draw. This procedure writer notified lab. Tele removed. Pt is impulsive jumps out of bed and sets alarm on. Unsteady gait. Refuses to use FWW. Refuses to wear yellow gown. Wearing only a pull-up brief. Has money in brief, falling out on floor. Pt refuses to have harris locked up in hospital safe. This procedure writer reminded pt of hospital valuables policy and pt verbalized understanding. Pt asked friend at bedside to take harris for safe keeping. Friend has collected all harris and will keep until pt d/c's. IVF initiated per orders. Denies pain. 1 unit Novolog and 10 units Lantus given per mar. Educated on S/S of hyper/hypoglycemia. Bed alarm on. Door open for close monitoring.
[2019-01-30 03:58] VITALS: BP 140/88; PULSE 92; RESP 18; TEMP 36.8; O2SAT 97
[2019-01-30 04:08] LABS: RBC Urine None Seen (0-5/HPF)
[2019-01-30 05:08] LABS: Hemoglobin A1C% w Est Avg Glu > 14.0 % (4.0-6.0)
[2019-01-30 05:50] LABS: Add Manual Diff / Slide Review NO; Basophils Absolute Auto 100 /uL (0-100); Eosinophils Absolute Auto 200 /uL (0-450); Eosinophils Percent Auto 2.3 % (2-4); Hematocrit 29.3 % (41-53); Hemoglobin 10.2 g/dL (13.5-17.5); Lymphocytes Absolute Auto 3000 /uL (1100-4500); Lymphocytes Percent Auto 27.6 % (25-40); Mean Corpuscular HGB Conc 34.8 % (30-36); Mean Corpuscular Hemoglobin 29.3 PG (26-34); Mean Corpuscular Volume 84.1 fL (80-100); Monocytes Absolute Auto 600 /uL (0-900); Monocytes Percent Auto 5.9 % (3-14); Neutrophils Absolute Auto 6800 /uL (1500-7000); Neutrophils Percent Auto 63.2 % (50-75); Platelet Count 411 X10^3/uL (150-400); Red Blood Cell Count 3.49 X10^6/uL (4.5-5.9); Red Cell Distribution Width 13.7 % (11.6-14.8); White Blood Cell Count 10.7 X10^3/uL (4.5-11.0)
[2019-01-30 05:54] LABS: BUN Creatinine Ratio 23.5 (6-22); Blood Urea Nitrogen 40 mg/dL (9-20); Calcium 8.4 mg/dL (8.4-10.2); Carbon Dioxide 27 mmol/L (22-32); Chloride 98 mmol/L (98-107); Estimated Glomerular Filt Rate 41.2 mL/min (>60); Glucose 274 mg/dL (80-110); HEMOLYSIS < 15 (0-50); Potassium 4.4 mmol/L (3.4-5.1); Sodium 134 mmol/L (137-145)
[2019-01-30 05:55] LABS: Cholesterol 113 mg/dL (140-199); HDL Cholesterol 32 mg/dL (40-60); LDL Cholesterol Calculated 61 mg/dL (<100); Triglycerides 99 mg/dL (35-150)
[2019-01-30 06:26] LABS: TSH w/ Reflex to FT4 1.46 uIU/mL (0.47-4.68)
[2019-01-30 06:51] LABS: Bilirubin Urine UA NEGATIVE (NEGATIVE); Color Urine UA YELLOW; Glucose Urine UA 2+ g/dL (Negative); Ketones Urine UA NEGATIVE (NEGATIVE); Leukocyte Esterase Urine UA 2+ (NEGATIVE); Nitrite Urine UA NEGATIVE (Negative); Occult Blood Urine UA TRACE-LYSED (Negative); Protein Urine UA NEGATIVE (Negative); Urobilinogen Urine UA 0.2 E.U./dL (0.2)
[2019-01-30 06:53] LABS: Appearance Urine UA Slightly Cloudy
[2019-01-30 07:37] LABS: WBC Urine 30-100/HPF (0-5/HPF)
[2019-01-30 07:38] LABS: Bacteria Urine Few (2-10); Culture Indicated Urine Specimen Cultured; Squamous Epithelial Cell Urine None Seen (0-5/HPF)
[2019-01-30 08:00] VITALS: BP 144/79; PULSE 98; RESP 18; TEMP 36.9; O2SAT 97; O2SAT 99
[2019-01-30] MEDS: INSULIN REGULAR 100 UNIT/ML 3 ML VIAL 7 UNIT SUBCUT ×2 (08:25→12:18)
[2019-01-30] MEDS: METOPROLOL IR 25 MG TABLET 12.5 MG PO (08:48)
--- NOTE | 2019-01-30 09:52 | PM.DS.1 ---
History of Present Illness Date Patient Seen: 01/30/19 Chief complaint: ? DKA, BS > 600, altered mental status Narrative: Silvino Moe is a 63-year-old male who is not normally followed by preventative healthcare and presented with elevated blood sugars. He states he has lost weight, strength, and has numbing and tingling in both of his feet. Apparently he went and bought his own glucometer and checked his blood sugar and it registered too high to measure. So he presented to the emergency department for further evaluation prior to going home to [place]. The patient states he quit drinking beer about a year ago, used to drink a case of beer a day and is now down to and occasional beer or 2. Discharge Providers Date of admission: 01/29/19 18:48 Discharge Date: 01/30/19 Consults: 01/30/19 09:43 Consult to Dietitian, Adult Routine Comment: Reason For Exam: Newly diagnosed diabetes Discharge provider: Chloé Radford MD Summary Discharge Diagnosis: New Onset Diabetes Hyperglycemia Hypertension Acute Kidney Injury, secondary to prerenal azotemia Hospital Course: Patient was admitted to the hospital with an elevated blood sugar of 600. He recieved 20 units of insulin plus a sliding scale. He was placed on metoprolol and atorvastatin. Interestingly, his lipids were well controlled. He is currently being educated on insulin usage. He does not have a primary care provider and will be referred to [facility]. We will arrange for insulin prior to discharge Patient has no complaints and feels ready to go home. Status at Discharge Cognitive/behavioral status at discharge: oriented Functional status at discharge: independent ambulation Overall status at discharge: patient is back to baseline Time Spent with Patient Less than 30 minutes Exam Vital Signs (past 8 hours): - 01/30/19 03:58 01/30/19 08:00 Temperature 98.2 F 98.4 F Pulse Rate 92 H 98 H Respiratory Rate 18 18 Blood Pressure 140/88 144/79 H Pulse Oximetry 97 99 Oxygen Delivery Method Room Air Narrative Exam Narrative: Pleasant male Lungs: clear to auscultation CV: RRR nl Sl S2 Abd: soft/ non tender/ nondistended Ext: no edema Objective Labs Result Diagrams: 01/30/19 05:11 01/30/19 14:43 Labs: Laboratory Results - last 24 hr 01/29/19 01/29/19 01/29/19 16:26 16:26 16:26 WBC 12.8 H RBC 3.97 L Hgb 11.1 L Hct 33.7 L MCV 85.0 MCH 27.9 MCHC 32.8 RDW 14.0 Plt Count 478 H Neut % (Auto) 73.0 Lymph % (Auto) 20.0 L [place] % (Auto) 5.8 Eos % (Auto) 0.6 L Baso % (Auto) 0.6 Neut # (Auto) 9300 H Lymph # (Auto) 2600 [place] # (Auto) 700 Eos # (Auto) 100 Baso # (Auto) 100 VBG pH VBG pCO2 VBG pO2 VBG HCO3 VBG Total CO2 VBG O2 Saturation VBG Base Excess Sodium 128 L Potassium 4.8 Chloride 86 L Carbon Dioxide 28 BUN 51 H Creatinine 2.10 H Estimated GFR 32.3 L BUN/Creatinine Ratio 24.3 H Glucose 628 H* Hemoglobin A1c Lactate Calcium 9.1 Total Bilirubin 0.5 AST 13 L ALT 10 L Alkaline Phosphatase 99 Total Protein 8.9 H Albumin 4.2 Globulin 4.7 H Albumin/Globulin Ratio 0.9 L Triglycerides Cholesterol LDL Cholesterol, Calc HDL Cholesterol Procalcitonin 0.15 TSH Urine Color Urine Appearance Urine pH Ur Specific [place] Urine Protein Urine Glucose (UA) Urine Ketones Urine Occult Blood Urine Nitrate Urine Bilirubin Urine Urobilinogen Ur Leukocyte Esterase Urine RBC Urine WBC Ur Squamous Epith Cells Urine Bacteria Ur Culture Indicated? Ketones 01/29/19 01/29/19 01/29/19 16:26 16:26 16:35 WBC RBC Hgb Hct MCV MCH MCHC RDW Plt Count Neut % (Auto) Lymph % (Auto) [place] % (Auto) Eos % (Auto) Baso % (Auto) Neut # (Auto) Lymph # (Auto) [place] # (Auto) Eos # (Auto) Baso # (Auto) VBG pH 7.32 L VBG pCO2 55.1 H VBG pO2 20 L VBG HCO3 29 H VBG Total CO2 30 H VBG O2 Saturation 27 L VBG Base Excess 3.0 Sodium Potassium Chloride Carbon Dioxide BUN Creatinine Estimated GFR BUN/Creatinine Ratio Glucose Hemoglobin A1c Lactate 1.5 Calcium Total Bilirubin AST ALT Alkaline Phosphatase Total Protein Albumin Globulin Albumin/Globulin Ratio Triglycerides Cholesterol LDL Cholesterol, Calc HDL Cholesterol Procalcitonin TSH Urine Color Urine Appearance Urine pH Ur Specific [place] Urine Protein Urine Glucose (UA) Urine Ketones Urine Occult Blood Urine Nitrate Urine Bilirubin Urine Urobilinogen Ur Leukocyte Esterase Urine RBC Urine WBC Ur Squamous Epith Cells Urine Bacteria Ur Culture Indicated? Ketones 0.31 H 01/29/19 01/30/19 01/30/19 23:50 03:52 05:11 WBC 10.7 RBC 3.49 L Hgb 10.2 L Hct 29.3 L MCV 84.1 MCH 29.3 MCHC 34.8 RDW 13.7 Plt Count 411 H Neut % (Auto) 63.2 Lymph % (Auto) 27.6 [place] % (Auto) 5.9 Eos % (Auto) 2.3 Baso % (Auto) 1.0 Neut # (Auto) 6800 Lymph # (Auto) 3000 [place] # (Auto) 600 Eos # (Auto) 200 Baso # (Auto) 100 VBG pH VBG pCO2 VBG pO2 VBG HCO3 VBG Total CO2 VBG O2 Saturation VBG Base Excess Sodium Potassium Chloride Carbon Dioxide BUN Creatinine Estimated GFR BUN/Creatinine Ratio Glucose Hemoglobin A1c > 14.0 H Lactate Calcium Total Bilirubin AST ALT Alkaline Phosphatase Total Protein Albumin Globulin Albumin/Globulin Ratio Triglycerides Cholesterol LDL Cholesterol, Calc HDL Cholesterol Procalcitonin TSH Urine Color Yellow Urine Appearance Slightly cloudy Urine pH 5.0 Ur Specific [place] 1.010 Urine Protein Negative Urine Glucose (UA) 2+ H Urine Ketones Negative Urine Occult Blood Trace-lysed Urine Nitrate Negative Urine Bilirubin Negative Urine Urobilinogen 0.2 Ur Leukocyte Esterase 2+ H Urine RBC None seen Urine WBC 30-100/hpf H Ur Squamous Epith Cells None seen Urine Bacteria Few (2-10) H Ur Culture Indicated? Specimen cultured Ketones 01/30/19 01/30/19 01/30/19 05:11 05:11 05:11 WBC RBC Hgb Hct MCV MCH MCHC RDW Plt Count Neut % (Auto) Lymph % (Auto) [place] % (Auto) Eos % (Auto) Baso % (Auto) Neut # (Auto) Lymph # (Auto) [place] # (Auto) Eos # (Auto) Baso # (Auto) VBG pH VBG pCO2 VBG pO2 VBG HCO3 VBG Total CO2 VBG O2 Saturation VBG Base Excess Sodium 134 L Potassium 4.4 Chloride 98 Carbon Dioxide 27 BUN 40 H Creatinine 1.70 H Estimated GFR 41.2 L BUN/Creatinine Ratio 23.5 H Glucose 274 H D Hemoglobin A1c Lactate Calcium 8.4 Total Bilirubin AST ALT Alkaline Phosphatase Total Protein Albumin Globulin Albumin/Globulin Ratio Triglycerides 99 Cholesterol 113 L LDL Cholesterol, Calc 61 HDL Cholesterol 32 L Procalcitonin TSH 1.46 Urine Color Urine Appearance Urine pH Ur Specific [place] Urine Protein Urine Glucose (UA) Urine Ketones Urine Occult Blood Urine Nitrate Urine Bilirubin Urine Urobilinogen Ur Leukocyte Esterase Urine RBC Urine WBC Ur Squamous Epith Cells Urine Bacteria Ur Culture Indicated? Ketones Discharge Plan Discharge Plan Patient Disposition: Home Discharge comment: New patient appointment at [facility] [phone] Discharge Med Rec/Prescriptions Prescriptions: New Humulin R Regular U-100 Insuln 100 unit/mL Solution 7 unit subcut TIDWM 30 Days RF: 0 metoprolol tartrate 25 mg Tablet 12.5 mg PO BID 30 Days Qty: 30 RF: 0 Lantus Solostar U-100 Insulin 100 unit/mL (3 mL) Insulin Pen 20 unit subcut BID 30 Days Qty: 12 RF: 0 Provider Discharge Instructions Diet: Carb-consistent/Diabetic Activity: as tolerated Visit Report/Discharge Packet Instructions: Lifestyle Changes as Effective as Drugs in Preventing Progression to Diabet, Diabetes and Cardiovascular Disease: What's the Link?, Complications of Type 2 Diabetes, Type 2 Diabetes, Diabetic Neuropathy, How to Use an Insulin Pen, Insulin Injection, Metoprolol, Insulin Regular (By injection), Insulin Glargine (By injection) Visit Report Forms: Stroke Signs & Symptoms Discharge Data Attending Provider: Philomena Pelaez Admit Date/Time: 01/29/19 18:48 Quality VTE Deep Vein Thrombosis/Pulmonary Embolism Present on Admission: No
[2019-01-30] MEDS: KCL 20 MEQ IN NS 1,000 ML 250 MEQ IV (10:16)
[2019-01-30 12:03] VITALS: BP 143/94; PULSE 83; RESP 16; TEMP 36.7; O2SAT 98
--- NOTE | 2019-01-30 12:08 | PC.NURSE ---
Addendum entered by Jami Loredo R.N. 01/30/19 14:44: DC - PT remained anxious and after speaking to Lorena refuses to stay at hospital, states he will pay $ and fill prescriptions on his own, Lorena provided his f/u info for appt next week and pt is also to call hospital in am to get his medicaid number, the info was explained to both pt and his SO who will see that it is done, scripts and priority pass provided, reviewed all the dc instructions, pt has his $$ and clothing with him, lab was contacted and the bmp was drawn. Addendum entered by Jami Loredo R.N. 01/30/19 14:17: IVF - pt up to br independently and pulled out IV that was infusing his NS and K at 250ml, only approx 50ml left, he pulled iv out himself when it it was in his way, cleaned site and removed the other heplock, called lab to draw approx 1500 as ordered, then SS in to discuss his plan to make an appt for f/u care in Sunday. Pt is belligerent regarding his staying longer tonight due to insurance issues with his insulin and Lorena in now to discuss. Original Note: AM NOTE - pt is awake, general complaints about being hospitalized, costs, HR 96, ra 97%, denies nausea, does have a protruding abd area, soft, moving restlessly in bed, denies pain, cbg 285 and new insulin admin described and administered to pt, later up standby to br cedriced, in this am and wants pt to receive IVF per order and then may dc home after repeat bmp, Lorena SS in to discuss medication costs, follow up w/MD and insurance issues.
--- NOTE | 2019-01-30 14:04 | DIET.PN ---
Consult for education. Pt newly dx w/diabetes, though suspect has had it for awhile. Does not see PCP for routine care. Pt very jumpy; appears nervous. Having very difficult time seeing written diet information. Keeps saying, Those are all the bad foods. Seems easily distracted. DX: DM, new dx BMMI 24 Assessment: Pt seems very distracted; doubt he took in much of diet instruction. Says he's leaving today, though hasn't received any teaching on administering insulin. Intervention: Provided written instructions on Consistent carb diet - (brought large print after realizing his difficulty with vision). This was a preliminary instruction. Plan: Pt will need more teaching- out-patient basis.
--- NOTE | 2019-01-30 14:35 | CM.DPC ---
DCP Cont: Called [facility] and made a new patient appointment for 02/04/19 @ 2:50 (check in time). Patient will be seeing Dr. Weir for his new diagnosis of diabetes and to manage his new insulin Rx. MEERA Shah gave the appointment info to the patient prior to his discharge. Alisha Palmer, Care [employer] Nutrition Services Supervisor
[2019-01-30 15:09] LABS: BUN Creatinine Ratio 21.1 (6-22); Blood Urea Nitrogen 38 mg/dL (9-20); Calcium 8.5 mg/dL (8.4-10.2); Carbon Dioxide 28 mmol/L (22-32); Chloride 99 mmol/L (98-107); Estimated Glomerular Filt Rate 38.6 mL/min (>60); Glucose 156 mg/dL (80-110); HEMOLYSIS < 15 (0-50); Potassium 4.6 mmol/L (3.4-5.1); Sodium 137 mmol/L (137-145)
--- NOTE | 2019-01-31 10:44 | CM.SWNOTE ---
DC 01.30.19 Worked on this DCP throughout the day yesterday;Dr Radford had DC Silvino in the morning, she requested the CM team secure insulin and PCP f/u, per DC Summary: It appeared that the patient was likely going to leave AMA and therefore he was discharged home. We were able to arrange for insulin for him Promotion Specialist Alisha working diligently to get this 63 yo, resident of [place] and admitted under obs for blood sugars in the 600s, home w/insurance coverage, insulin, and f/u w/ PCP in Sun. Met w/pt yesterday to review DCP options. He was confident about returning home, gf AJ was at bedside and said she works but would help pt get his insulin and get him to a DR appt. Inevitably, Santos coverage was secured by Dipti Steele, admission counselor, active coverage would date back to January 15, 2019 but pt's provider one number would not be available or active until 01.31.19. Updated pt w/above, he and AJ were ready to leave and get settled back at home, they suggested paying on their own for the first 30 day supply of insulin until pt could get his insurance coverage. Both aware insulin could be quite costly, exact amount unknown to this HEAVY FORGER HELPER, no time before pt's departure to investigate this. [facility] Alisha confirmed PCP appt. on Sun w/[facility], see Alisha's note; it was confirmed that they would take pt's Santos coverage. P: DC home yesterday w/gf, insulin Rx, insurance coverage pending (provided number for admission counselors to obtain provider one #) and f/u w/ MD scheduled for next week. Selene Mtz, HEAVY FORGER HELPER
--- NOTE | 2019-02-19 09:23 | PC.NURSE ---
Stop time for Sodium Chloride 0.45% 01/30/19 1000
--- NOTE | 2019-02-22 09:00 | PC.NURSE ---
1l of ELYSE stovall at 1848 and report giving to oncoming nurse.
== END 2019-01-30 15:39 | disposition home or self-care (01) ==
LOC: ED 18:10 → AC 01-30 08:45
PROVIDERS: Internal Medicine; Nurse Practitioner Family; Admitting Provider Internal Medicine; Emergency Provider Emergency Medicine; Visit Provider Internal Medicine
DX: E11.65 Type 2 diabetes mellitus with hyperglycemia (principal); E86.0 Dehydration; N28.9 Disorder of kidney and ureter, unspecified; R03.0 Elevated blood-pressure reading, without diagnosis of hypertension; N39.44 Nocturnal enuresis
CPT/HCPCS: 36415; 36591; 71045; 80048; 80053; 80061; 81001; 81003; 82009; 82805; 82962; 83036; 83605; 84145; 84443; 85025; 87040; 87077; 87086; 87186; 93005; 93010; 93041; 96361; 96372; 96374; 99284; G0378; J7050